=== PATIENT | female | born 1990 | race Caucasian/White ===

== ENCOUNTER 2018-04-09 17:17 | Day surgery (SDC) | payer OTHER ==
[2018-04-09 18:02] VITALS: BP 116/62; TEMP 98.5; BMI 29.6
--- NOTE | 2018-04-09 19:17 | ER ---
DATE OF SERVICE: 04/09/2018 PRIMARY OB: Ilana Knapp MD CHIEF COMPLAINT: Elevated blood pressures and swelling. HISTORY OF PRESENT ILLNESS: The patient is a 28-year-old G3, P1 female with an intrauterine at 39 weeks and 5 days, who is presenting to Labor and Delivery after being seen in a nurse visit in the office for blood pressure check. The patient at the time was referred here for further evaluation. The patient reports that she has been experiencing swelling today and was worried and was told that in the clinic that her blood pressures were elevated, though we do not have an actual number, but they did say the patient had no protein in her urine. The patient denies headache. She denies chest pain or shortness of breath. She denies nausea, vomiting, or constipation. She does report diarrhea over the last couple of days. The patient denies any new rashes, hip problems, knee problems, or muscle weakness. She does report she has been feeling uterine contractions over the last few days; with them, feeling more uncomfortable today. The patient denies hip problems, knee problems, or muscle weakness. Denies vaginal bleeding or leakage of fluid. Denies urinary urgency. PAST MEDICAL HISTORY: Negative. PAST SURGICAL HISTORY: Wrist surgery in third grade. ALLERGIES: NO KNOWN DRUG ALLERGIES. SOCIAL HISTORY: Denies drug, alcohol, or tobacco use. ALLERGIES: HYDROCODONE. MEDICATIONS: vitamins. OB LABS: Blood type is O positive. Antibody screen is negative. Hepatitis B surface antigen is negative. GC chlamydia negative. She is rubella immune. HIV is negative. She is group B strep positive. REVIEW OF SYSTEMS: Per HPI. PHYSICAL EXAMINATION: VITAL SIGNS: Blood pressure over the course of an hour 128/171 to 116/62, heart rate in the 70s, saturating 98% on room air, respiratory rate 18, and temperature unavailable. GENERAL: She appears to be in no acute distress. She is alert, oriented, cooperative, and pleasant to interact with. HEAD: Normocephalic, atraumatic. LUNGS: Clear to auscultation bilaterally. HEART: Has regular rate and rhythm. ABDOMEN: Soft, gravid, nontender. EXTREMITIES: Nontender. She does have some edema, 1+ pretibial edema. DTRs are 1+. heart tracing and NST performed for elevated blood pressures. Baseline was noted to be in the 130s with moderate long-term variability, positive 15 x 15 accelerations, no decelerations. There is some irritability, but no regular contractions. ASSESSMENT AND PLAN: The patient is a 28-year-old, G3, P1 female with an intrauterine at 39 weeks and 5 days, presents for concerns of -induced hypertension. No evidence at this time that she has a -induced hypertension as blood pressures were completely normal, and urine is reported to be negative for protein at clinic. The patient does have a scheduled induction next Sunday and was scheduled to see Dr. Knapp this . She has been given term labor precautions. Job ID: [id number]
== END 2018-04-09 18:45 | disposition home health service (06) ==
LOC: L&D/OP 17:17
PROVIDERS: ATTEND Obstetrics & Gynecology
DX: O13.3 Gestational [pregnancy-induced] hypertension without significant proteinuria, third trimester (principal); O99.89 Other specified diseases and conditions complicating pregnancy, childbirth and the puerperium; M79.89 Other specified soft tissue disorders; R19.7 Diarrhea, unspecified; O99.820 Streptococcus B carrier state complicating pregnancy; Z79.899 Other long term (current) drug therapy; Z3A.39 39 weeks gestation of pregnancy
CPT/HCPCS: 99282

== ENCOUNTER 2018-04-13 05:30 | Inpatient (IN) | payer OTHER ==
[~2018-04-13 05:30] MED LIST: Acetaminophen 500 MG TAB PO PRN; Lidocaine 1% (PF) 30 ML VIAL SC PRN; NS / Oxytocin 40 units/1000ml 1,000 ML IV PRN; Ondansetron PF 4 MG/2 ML Vial IVP PRN; Promethazine HCl 25 MG/ML VIAL IM PRN
[2018-04-13 07:21] VITALS: BMI 29.8
[2018-04-13] MEDS: Lactated Ringer's 1,000 ML IV SCH ×3 (07:30→18:44)
[2018-04-13 07:55] LABS: Hemoglobin 12.8 g/dL (12.0-16.0); Mean Corpuscular HGB CONC 34.6 g/dL (32.0-36.0); Mean Corpuscular Hemoglobin 29.2 pg (27.0-31.0); Mean Corpuscular Volume 84.4 fL (78.0-98.0); Mean Platelet Volume 9.9 fL (7.4-10.4); Platelet Count 143 thou/uL (130-400); RBC Distribution Width 11.6 % (11.5-14.5); Red Blood Cell (RBC) Count 4.38 mill/uL (4.20-5.40); White Blood Cell (WBC) Count 7.3 thou/uL (4.8-10.8)
[2018-04-13] MEDS: NS w/ Oxytocin 10 units 500 ML IV SCH ×2 (08:05→20:56)
[2018-04-13 08:38] LABS: HBSAg Index 0.26 S/CO (0-0.99); Hep B Surf Ag Non-Reactive S/CO (NonReactive); Syphilis Antibody Nonreactive (Nonreactive); Syphilis Antibody Index 0.03 S/CO (<1.00 Non-Reactive)
[2018-04-13] MEDS ORDERED: Penicillin G Potassium 5 MILL.UNITS in Sodium Chloride 0.9% 100 ML IVPB SCH (09:00)
[2018-04-13] MEDS: Penicillin G 2.5 MILL.units 2.5 MILL.UNITS in Premix Bag 1 BAG IVPB SCH ×2 (12:13→16:30)
[2018-04-13] MEDS ORDERED: Fentanyl 4 mcg/Bup 0.1% Cadd 100 ML ONE (13:04)
[2018-04-13] MEDS ORDERED: Lidocaine 1.5%/Epinephrine 1:200,000 5 ML AMPUL IJ ONE (13:25)
--- NOTE | 2018-04-13 13:44 | PDOC.LDHP ---
Labor and Delivery H&P Chief complaint: scheduled induction Current gestational age (weeks): 40 Due date: 04/11/18 Dating criteria: last menstrual period Grav: 3 Para: 1 Current complications: none Abnormal US findings: No Past Medical History: Wrist surgery Current medications: pre- vitamins Previous surgical history: other (wrist surgery) Allergies/Adverse Reactions: Allergies Allergy/AdvReac Type Severity Reaction Status Date / Time hydrocodone Allergy Intermediate Verified 04/13/18 07:13 Social history: none - Physical Exam General: resting Heart: RRR Lungs: CTAB Abdomen: NTTP Extremeties: trace edema FHT: category 1 - Vaginal Exam cm dilated: 3 Effacement: 25% Station: -1 - OB Labs Blood type: O RH: positive Antibody Screen: negative HIV: negative RPR: negative HEPSAg: negative 1 hour GCT: negative GBS: positive Urine drug screen: not done Rubella: immune - Assessment L&D Assessment: elective induction at term - Plan Plan: admit to L&D, labor augmentation if indicated, GBS antibiotic prophylaxis
--- NOTE | 2018-04-13 17:57 | PDOC.OPDEL ---
OB Operative/Delivery Note Delivery Dr/Surgeon: Ra Pre-Delivery Diagnosis: elective induction Procedure/Post Delivery Dx: spontaneous vaginal delivery Weeks gestation: 40 Anesthesia: epidural - Findings A Sex: female - 1 min: 8 - 5 min: 9 - Additional Findings/Plan Placenta delivered: spontaneous Repaired Obstetrical Laceration: episiotomy Estimated blood loss: 280ml Post delivery plan: routine recovery (midline episitomy performed to expedite delivery due to heart rate in the 70's. Tight nuchal cord x 1 cut and clamp for delivery...Kurtis at bedside.)
[2018-04-13] MEDS ORDERED: Misoprostol 200 MCG TAB VAG PRN (17:58)
[2018-04-13] MEDS ORDERED: Bisacodyl 10 MG SUPP PR PRN (17:58)
[2018-04-13] MEDS ORDERED: Milk Of Magnesia 30 ML UDCUP PO PRN (17:58)
[2018-04-13] MEDS ORDERED: diphenhydrAMINE 25 MG CAP PO PRN (17:58)
[2018-04-13] MEDS ORDERED: Adacel (T-DAP) 0.5 ML SYRINGE IM ONE (17:58)
[2018-04-13] MEDS ORDERED: Benzocaine/Menthol 20-0.5% 60 ML CAN TOP PRN (17:58)
[2018-04-13] MEDS ORDERED: Preparation H Ointment 28 GM TUBE PR PRN (17:58)
[2018-04-13] MEDS ORDERED: Lanolin Ointment 7 GM TUBE TOP PRN (17:58)
[2018-04-13] MEDS ORDERED: NS / Oxytocin 40 units/1000ml 1,000 ML IV SCH (18:00)
[2018-04-13] MEDS ORDERED: traMADol HCl 50 MG TAB PO PRN (18:00)
[2018-04-13] MEDS: Docusate Calcium (SURFAK) 240 MG CAP PO SCH (21:35)
[2018-04-13] MEDS: Ibuprofen 800 MG TAB PO SCH (21:35)
[2018-04-14] MEDS ORDERED: Bupivacaine 0.25% HCL 30 ML VIAL ONE (01:00)
[2018-04-14] MEDS: Ibuprofen 800 MG TAB PO SCH ×3 (05:01→21:12)
--- NOTE | 2018-04-14 07:43 | PDOC.PP ---
Post Progress Note Post Day #: 1 Subjective: Having some issues with but otherwise doing well without complaints. PO intake tolerated: yes Ambulation: yes Vital Signs (12 hours) Temp Pulse Resp BP BP Pulse Ox 04/14/18 05:00 97.6 F 54 L 16 123/56 L 04/14/18 00:30 98.6 F 63 16 123/58 L 04/13/18 21:38 98.6 F 68 16 131/66 99 04/13/18 20:30 98.6 F 72 16 132/65 Weight Weight 158 lb - Physical Examination General: NAD Respiratory: non-labored breathing Abdominal: lochia (normal), no distention, appropriately TTP Fundus firm & at: below umbilicus Neurological: no gross focal deficits Psychiatric: A&Ox3, normal affect Result Diagrams: 04/13/18 07:46 Additional Labs: Post Labs Blood Type O POSITIVE 04/13/18 07:46 Hep Bs Antigen Non-Reactive S/CO (NonReactive) 04/13/18 07:46 (1) (spontaneous vaginal delivery) Code(s): O80 - ENCOUNTER FOR FULL-TERM UNCOMPLICATED DELIVERY Status: Acute - Assessment/Plan Doing well. Continue routine care. May want d/c later today and will let nurse know.
[2018-04-14] MEDS: Ferrous Sulfate 325 MG TAB PO SCH ×2 (08:00→16:23)
[2018-04-14] MEDS: Docusate Calcium (SURFAK) 240 MG CAP PO SCH ×2 (08:27→21:12)
[2018-04-14] MEDS: Prenatal Vitamin 1 TAB PO SCH (08:27)
[2018-04-15] MEDS: Ibuprofen 800 MG TAB PO SCH (05:57)
[2018-04-15 07:36] VITALS: BP 119/75; TEMP 97.8
[2018-04-15] MEDS: Docusate Calcium (SURFAK) 240 MG CAP PO SCH (09:17)
[2018-04-15] MEDS: Prenatal Vitamin 1 TAB PO SCH (09:17)
[2018-04-15] MEDS: Ferrous Sulfate 325 MG TAB PO SCH (09:18)
== END 2018-04-15 10:03 | disposition home or self-care (01) | DRG 807 ==
LOC: L&D 06:48 → 3SW 20:48
PROVIDERS: ADMIT Obstetrics & Gynecology; ATTEND Obstetrics & Gynecology
PROC: 10E0XZZ Delivery of Products of Conception, External Approach (ICD-10-PCS; principal; 2018-04-13)
PROC: 0W8NXZZ Division of Female Perineum, External Approach (ICD-10-PCS; 2018-04-13)
PROC: 3E033VJ Introduction of Other Hormone into Peripheral Vein, Percutaneous Approach (ICD-10-PCS; 2018-04-13)
PROC: 10907ZC Drainage of Amniotic Fluid, Therapeutic from Products of Conception, Via Natural or Artificial Opening (ICD-10-PCS; 2018-04-13)
DX: O48.0 Post-term pregnancy (principal); Z37.0 Single live birth; O99.824 Streptococcus B carrier state complicating childbirth; O76 Abnormality in fetal heart rate and rhythm complicating labor and delivery; O69.1XX0 Labor and delivery complicated by cord around neck, with compression, not applicable or unspecified; Z3A.40 40 weeks gestation of pregnancy; Z88.8 Allergy status to other drugs, medicaments and biological substances
CPT/HCPCS: 36415; 51702; 85027; 86780; 86850; 86900; 86901; 87340; J2001; J2540; J3490; J7050; S0020

== ENCOUNTER 2019-08-07 09:18 | Emergency (ER) | payer OTHER ==
[2019-08-08 12:09] LABS: SARS-CoV-2 MS2 Positive; SARS-CoV-2 N Gene Negative; SARS-CoV-2 S Gene Negative; SARS-CoV-2 orf1ab Negative
== END 2019-08-07 10:02 | disposition home or self-care (01) ==
LOC: ERS 09:18
DX: R05 Cough (principal); R09.81 Nasal congestion; Z20.828 Contact with and (suspected) exposure to other viral communicable diseases
CPT/HCPCS: 87635; 99283; U0003